=== PATIENT | female | born 1950 | race Caucasian/White ===

== ENCOUNTER 2018-02-04 15:24 | Emergency (ER) | payer MEDICARE ==
[~2018-02-04] VITALS: Ht 157.5 cm; Wt 50.8 kg
[2018-02-04 15:44] VITALS: BP 143/100
== END 2018-02-04 18:11 | disposition home or self-care (01) ==
LOC: ER 15:24 → EDBD 15:24 → ER 18:11
DX: S16.1XXA Strain of muscle, fascia and tendon at neck level, initial encounter (principal); S60.121A Contusion of right index finger with damage to nail, initial encounter; M19.90 Unspecified osteoarthritis, unspecified site; Z88.2 Allergy status to sulfonamides; V49.49XA Driver injured in collision with other motor vehicles in traffic accident, initial encounter; Y93.89 Activity, other specified; Y99.8 Other external cause status; Y92.488 Other paved roadways as the place of occurrence of the external cause
CPT/HCPCS: 72040; 73140